=== PATIENT | male | born 1980 | race Caucasian/White ===

== ENCOUNTER 2016-11-16 15:08 | Emergency (ER) | payer MEDICARE, OTHER ==
[~2016-11-16] VITALS: Ht 182.9 cm; Wt 88.0 kg
[~2016-11-16 15:08] MED LIST: METH750T2 PO; MOBI15TA PO; XANA1TAB6 PO
[2016-11-16 15:12] VITALS: BP 154/79; PULSE 86; RESP 14; TEMP 97.5; O2SAT 96
--- NOTE | 2016-11-16 16:10 | PD ---
HPI Chief Complaint: Wound/Suture/Staple Re-Check Time Seen by Provider: 16:04 Travel History International Travel<30 days: No Contact w/Intl Traveler<30days: No Traveled to known affect area: No History of Present Illness HPI 36-year-old male presents to emergency department requesting pain medication for finger pain secondary to lacerations to his left index and middle finger. His sutures have been in place for approximately 3-4 days. The sutures were placed [facility] per the patient. He is taking Keflex currently. He went to the [place] [facility] to follow-up with primary care and they would not give him pain medications. He was told to come to the ER. Denies paresthesias, loss of sensation, decreased range of motion, decreased strength to the affected fingers. Denies fever, chills, nausea, vomiting. Patient says if we can give him pain medication he will go to crack off the street. A PTSD and takes Xanax. Modifying factors or associated signs and symptoms. History Social History Alcohol Use: Yes (SOCIAL) Tobacco Use: No Allergies-Medications (Allergen,Severity, Reaction): Coded Allergies: *MDRO Multi-Drug Resistant Organism (Unverified Adverse Reaction, Unknown , 11/16/16) 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 Reported Meds & Prescriptions Reported Meds & Active Scripts Active Robaxin (Methocarbamol) 750 Mg Tab 750 Mg PO QID Mobic (Meloxicam) 15 Mg Tab 15 Mg PO DAILY Reported Xanax 1 mg (Alprazolam) Alprazolam 1 mg Tab 1 Tab PO QID Review of Systems Except as stated in HPI: all other systems reviewed are Neg Physical Exam Narrative GENERAL: Well-nourished, well-developed male patient, in no acute distress SKIN: Warm and dry. Distal aspect of left index and middle finger with lacerations that are well approximated and with sutures intact: Without erythema , edema, drainage; no signs of infection. Fingers with good opposition and full range of motion; less than 3 second cap refill; sensory intact. Left upper extremity supple and non-tense with 2+ radial pulse and sensory intact without erythema or edema. HEAD: Atraumatic. Normocephalic. EYES: Pupils equal and round. No scleral icterus. No injection or drainage. ENT: Mucosa pink and moist. Airway patent. NECK: Trachea midline. CARDIOVASCULAR: Regular rate. RESPIRATORY: No accessory muscle use. GASTROINTESTINAL: Flat. MUSCULOSKELETAL: No obvious deformities. No clubbing. No cyanosis. No edema. NEUROLOGICAL: Awake and alert. Oriented 3. No obvious cranial nerve deficits. Motor grossly within normal limits. Normal speech. PSYCHIATRIC: Appropriate mood and affect; insight and judgment normal. Data Data Last Documented VS Vital Signs Date Time Temp Pulse Resp B/P Pulse Ox O2 Delivery O2 Flow Rate FiO2 11/16/16 15:12 97.5 86 14 154/79 96 Room Air [facility] Medical Screen Exam Complete: Yes Emergency Medical Condition: No Differential Diagnosis Medical clearance, narcotic seeking, wound infection Narrative Course Vital signs are stable and the patient is stable for outpatient follow-up and treatment. The patient has no urgent or emergent medical complaints. There is no emergent or urgent medical need at this time. I instructed the patient to follow up with their primary care provider. A medical screening exam was performed: At the time of evaluation the presenting medical condition was determined not to be of an emergent nature. The patient was given the option of receiving additional care, but declined. Patient was given options for additional community resources from which to obtain care. The Patient Has Been advised to seek medical attention for their presenting complaint. The patient has been advised to return to the ER at any time if an emergent condition develops. Primary Impression: Encounter for medical screening examination Condition: Stable Maria Del Carmen Perales Nov 16, 2016 16:09
== END 2016-11-16 16:08 | disposition left against medical advice (07) ==
LOC: NEPB 15:08
DX: M79.645 Pain in left finger(s) (principal)
CPT/HCPCS: 99281

== ENCOUNTER 2017-02-21 09:36 | Emergency (ER) | payer OTHER, MEDICARE ==
[~2017-02-21] VITALS: Ht 182.9 cm; Wt 85.2 kg
[2017-02-21 09:38] VITALS: BP 145/102; PULSE 71; RESP 16; TEMP 97.9; O2SAT 99
[2017-02-21] MEDS ORDERED: XANA1TAB2 PO (10:23)
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
[2017-02-21 11:44] VITALS: BP 131/72; PULSE 68; RESP 18; O2SAT 99
[2017-02-21] MEDS ORDERED: PERC5TAB12 PO (11:57)
== END 2017-02-21 12:30 | disposition home or self-care (01) ==
LOC: PHED 09:36
DX: S62.396A Other fracture of fifth metacarpal bone, right hand, initial encounter for closed fracture (principal); F07.81 Postconcussional syndrome; G44.309 Post-traumatic headache, unspecified, not intractable; S80.812A Abrasion, left lower leg, initial encounter; S60.511A Abrasion of right hand, initial encounter; S80.811A Abrasion, right lower leg, initial encounter; I10 Essential (primary) hypertension; Z79.899 Other long term (current) drug therapy; Y09 Assault by unspecified means
CPT/HCPCS: 29125; 70450; 73130

== ENCOUNTER 2017-04-26 14:34 | Inpatient (IN) | payer OTHER, MEDICARE ==
[~2017-04-26] VITALS: Ht 182.9 cm; Wt 85.1 kg
[~2017-04-26 14:34] MED LIST changes: -METH750T2 PO; -MOBI15TA PO; +PERC5TAB12 PO; +XANA1TAB2 PO; -XANA1TAB6 PO
[2017-04-26 14:49] VITALS: BP 156/93; PULSE 88; RESP 18; O2SAT 99
[2017-04-26 15:22] LABS: AUTOMATED NEUTROPHIL # 3.7 TH/MM3 (1.8-7.7); BASOPHIL % 0.8 % (0.0-2.0); EOSINOPHIL % 0.5 % (0.0-4.0); HEMATOCRIT 44.1 % (39.0-51.0); HEMO FLAGS DIFF FINAL; LYMPH % 18.4 % (9.0-44.0); MEAN CELL VOLUME 89.5 FL (80.0-100.0); MEAN CORPUSCULAR HEMOGLOBIN 31.3 PG (27.0-34.0); MEAN CORPUSCULAR HGB CONC 34.9 % (32.0-36.0); MONO % 14.3 % (0.0-8.0); PLATELET COUNT 202 TH/MM3 (150-450); RED BLOOD COUNT 4.93 MIL/MM3 (4.50-5.90); RED CELL DISTRIBUTION WIDTH 13.1 % (11.6-17.2); WHITE BLOOD COUNT 5.7 TH/MM3 (4.0-11.0)
--- NOTE | 2017-04-26 15:22 | PD ---
HPI Chief Complaint: Psychiatric Symptoms Time Seen by Provider: 15:19 Travel History International Travel<30 days: No Contact w/Intl Traveler<30days: No Traveled to known affect area: No History of Present Illness HPI 37-year-old male that presents to the ED for evaluation of psychiatric evaluation. [facility] he reports that he has been having issues with depression and anxiety. Per patient he has racing of thoughts. Per patient he "fucked up his brain" with Xanax. Per patient she's been using this for about 4 years now. Per patient [facility]. He denies any suicidal or homicidal ideation but he will like some help. He denies any other medical issues. Per patient he also has been taking Suboxone for opiate abuse. History of MRSA. No IV drugs. PFSH Past Medical History Anxiety: Yes Depression: Yes Cardiovascular Problems: Yes (HTN) High Cholesterol: Yes Diminished Hearing: No Hypertension: Yes Insomnia: Yes Musculoskeletal: Yes (CHRONIC LOW BACK PAIN) Psychiatric: Yes (PTSD ) Immunizations Current: Yes Influenza Vaccination: No Past Surgical History Surgical History: No Previous Surgery Oral Surgery: Yes Social History Alcohol Use: Yes Tobacco Use: No Substance Use: Yes (THC ) Allergies-Medications (Allergen,Severity, Reaction): Coded Allergies: *MDRO Multi-Drug Resistant Organism (Unverified Adverse Reaction, Unknown , 04/26/17) 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 Reported Meds & Prescriptions Reported Meds & Active Scripts Active Active Prescriptions or Reported Medications Unobtainable Review of Systems Except as stated in HPI: all other systems reviewed are Neg Physical Exam Narrative GENERAL: SKIN: Warm and dry. HEAD: Atraumatic. Normocephalic. EYES: Pupils equal and round. No scleral icterus. No injection or drainage. ENT: No nasal bleeding or discharge. Mucous membranes pink and moist. Tongue is midline. No uvula deviation. NECK: Trachea midline. No JVD. CARDIOVASCULAR: Regular rate and rhythm. No murmurs, S3, S4. RESPIRATORY: No accessory muscle use. Clear to auscultation. Breath sounds equal bilaterally. GASTROINTESTINAL: Abdomen soft, non-tender, nondistended. Hepatic and splenic margins not palpable. MUSCULOSKELETAL: Extremities without clubbing, cyanosis, or edema. No obvious deformities. Full range of motion of the upper and lower extremities bilaterally. 2+ pulses bilaterally. NEUROLOGICAL: Awake and alert. No obvious cranial nerve deficits. Motor grossly within normal limits. Five out of 5 muscle strength in the arms and legs. Normal speech. PSYCHIATRIC: Very anxious mood and affect; insight and judgment normal. Data Data Last Documented VS Vital Signs Date Time Temp Pulse Resp B/P Pulse Ox O2 Delivery O2 Flow Rate FiO2 04/26/17 14:49 88 18 156/93 99 Orders Complete Blood Count With Diff (04/26/17 14:41) Comprehensive Metabolic Panel (04/26/17 14:41) Urinalysis - C+S If Indicated (04/26/17 14:41) Psych Screen (04/26/17 14:41) Drug Screen, Random Urine (04/26/17 14:41) Alcohol (Ethanol) (04/26/17 14:41) ^ Sitter (04/26/17 14:45) Labs Laboratory Tests Test 04/26/17 14:55 White Blood Count 5.7 TH/MM3 Red Blood Count 4.93 MIL/MM3 Hemoglobin 15.4 GM/DL Hematocrit 44.1 % Mean Corpuscular Volume 89.5 FL Mean Corpuscular Hemoglobin 31.3 PG Mean Corpuscular Hemoglobin 34.9 % Concent Red Cell Distribution Width 13.1 % Platelet Count 202 TH/MM3 Mean Platelet Volume 8.9 FL Neutrophils (%) (Auto) 66.0 % Lymphocytes (%) (Auto) 18.4 % Monocytes (%) (Auto) 14.3 % Eosinophils (%) (Auto) 0.5 % Basophils (%) (Auto) 0.8 % Neutrophils # (Auto) 3.7 TH/MM3 Lymphocytes # (Auto) 1.0 TH/MM3 Monocytes # (Auto) 0.8 TH/MM3 Eosinophils # (Auto) 0.0 TH/MM3 Basophils # (Auto) 0.0 TH/MM3 CBC Comment DIFF FINAL Differential Comment Urine Color YELLOW Urine Turbidity CLEAR Urine pH 6.0 Urine Specific [place] 1.035 Urine Protein 30 mg/dL Urine Glucose (UA) NEG mg/dL Urine Ketones TRACE mg/dL Urine Occult Blood NEG Urine Nitrite NEG Urine Bilirubin NEG Urine Urobilinogen 2.0 MG/DL Urine Leukocyte Esterase NEG Urine RBC 1 /hpf Urine WBC 1 /hpf Urine Squamous Epithelial <1 /hpf Cells Urine Mucus MOD /lpf Microscopic Urinalysis Comment CULT NOT INDICATED Sodium Level 138 MEQ/L Potassium Level 3.9 MEQ/L Chloride Level 101 MEQ/L Carbon Dioxide Level 27.4 MEQ/L Anion Gap 10 MEQ/L Blood Urea Nitrogen 10 MG/DL Creatinine 1.20 MG/DL Estimat Glomerular Filtration 69 ML/MIN Rate Random Glucose 110 MG/DL Calcium Level 9.3 MG/DL Total Bilirubin 1.3 MG/DL Aspartate Amino Transf 41 U/L (AST/SGOT) Alanine Aminotransferase 44 U/L (ALT/SGPT) Alkaline Phosphatase 70 U/L Total Protein 8.0 GM/DL Albumin 4.3 GM/DL Urine Opiates Screen NEG Urine Barbiturates Screen NEG Urine Amphetamines Screen NEG Urine Benzodiazepines Screen NEG Urine Cocaine Screen NEG Urine Cannabinoids Screen NEG Ethyl Alcohol Level LESS THAN 3 MG/DL MDM Medical Decision Making Medical Screen Exam Complete: Yes Emergency Medical Condition: Yes Medical Record Reviewed: Yes Interpretation(s) CBC & BMP Diagram 04/26/17 14:55 tox negative Differential Diagnosis Depression versus suicidal ideation versus anxiety versus adjustment disorder versus mood disorder versus bipolar disorder versus schizophrenia versus paranoid disorder versus psychosis versus substance abuse versus alcohol abuse versus alcohol induced psychosis versus homicidality addition versus cutting versus personality disorder Narrative Course 37-year-old male that presents to the ED for evaluation of psych. Patient was properly examined and was found to have signs and symptoms consistent appears to be psychiatric illness. Labs were drawn. Patient will be medically clear. Okay to be seen by psych. Mental health screening was discussed with the patient. Diagnosis Primary Impression: Mood disorder Additional Impression: Substance abuse Scripts Unable to Obtain Active Prescriptions or Reported Meds Stanley Mary Apr 26, 2017 15:22 Stanley Mary Apr 26, 2017 15:22
[2017-04-26 15:32] LABS: AMPHETAMINE, URINE NEG (NEG); BARBITURATES, URINE NEG (NEG); COCAINE, URINE NEG (NEG)
[2017-04-26 15:36] LABS: BLOOD, URINE NEG (NEG); COMMENT (UR) CULT NOT INDICATED; CULTURE IF INDICATED CULT NOT INDICATED; GLUCOSE,URINE NEG (NEG); KETONE, URINE TRACE mg/dL (NEG); MUCUS URINE MOD /lpf (OCC); NITRITE,URINE NEG (NEG); SQUAMOUS EPITHELIAL CELL URINE <1 /hpf (0-5); URINE COLOR YELLOW (YELLW/STRAW)
[2017-04-26 15:42] LABS: ALT (GPT) 44 U/L (12-78); ANION GAP 10 MEQ/L (5-15); AST (GOT) 41 U/L (15-37); BICARBONATE 27.4 MEQ/L (21.0-32.0); BLOOD UREA NITROGEN 10 MG/DL (7-18); CHLORIDE 101 MEQ/L (98-107); GLOMERULAR FILTRATION RATE 69 ML/MIN (>89); POTASSIUM 3.9 MEQ/L (3.5-5.1); SODIUM (NA) 138 MEQ/L (136-145)
[2017-04-26 15:45] LABS: ALKALINE PHOSPHATASE 70 U/L (45-117); TOTAL BILIRUBIN ADULT 1.3 MG/DL (0.2-1.0)
[2017-04-26] MEDS ORDERED: SUBO8MIS SL (17:25)
[2017-04-26 18:07] VITALS: BP 136/83; PULSE 96; RESP 18; O2SAT 100
[2017-04-26] MEDS ORDERED: LORazepam 2 MG TAB PO ONE (19:15)
[2017-04-26] MEDS ORDERED: diphenhydrAMINE HCL 50 MG/ML VIAL ONE (19:22)
[2017-04-26] MEDS ORDERED: LORazepam 2 MG/ML VIAL ONE (19:22)
[2017-04-26] MEDS ORDERED: HALOPERIDOL LACTATE 5 MG/ML AMP ONE (19:23)
[2017-04-26] MEDS ORDERED: HALOPERIDOL LACTATE 5 MG/ML AMP IM ONE (19:30)
[2017-04-26] MEDS ORDERED: LORazepam 2 MG/ML VIAL IM ONE (19:30)
[2017-04-26] MEDS ORDERED: diphenhydrAMINE HCL 50 MG/ML VIAL IM ONE (19:30)
[2017-04-26 22:03] VITALS: BP 114/67; PULSE 70; RESP 16; O2SAT 98
[2017-04-27 02:31] VITALS: BP 127/80; PULSE 98; RESP 18; O2SAT 98
[2017-04-27 06:10] VITALS: BP 137/63; PULSE 84; RESP 18; O2SAT 98
[2017-04-27 12:30] VITALS: BP 135/68; PULSE 88; RESP 18; O2SAT 98
[2017-04-27] MEDS ORDERED: LORazepam 1 MG TAB PO ONE (15:15)
[2017-04-27] MEDS ORDERED: LORazepam 2 MG/ML VIAL IM PRN (17:45)
[2017-04-27] MEDS ORDERED: FLUMAZENIL 0.5 MG/5 ML VIAL IV PUSH PRN (17:45)
[2017-04-27] MEDS ORDERED: LORazepam 2 MG TAB PO PRN (17:45)
[2017-04-27] MEDS ORDERED: LORazepam 2 MG/ML VIAL IV PUSH PRN ×4 (17:45)
[2017-04-27] MEDS ORDERED: ALUMINUM/MAGNESIUM/SIMETH 30 ML CUP PO PRN (17:45)
[2017-04-27] MEDS ORDERED: LORazepam 1 MG TAB PO PRN ×2 (17:45)
[2017-04-27] MEDS ORDERED: MAGNESIUM HYDROXIDE SUSP 30 ML CUP PO PRN (17:45)
[2017-04-27 18:43] VITALS: BP 135/85; PULSE 89; RESP 18; O2SAT 98
[2017-04-27 20:22] VITALS: BP 131/90; PULSE 76; RESP 20; TEMP 98.4; O2SAT 98
[2017-04-28] MEDS ORDERED: NICOTINE 21 MG/24 HR PATCH T-DERMAL SCH (09:00)
[2017-04-28] MEDS ORDERED: REMOVE OLD PATCH T-DERMAL SCH (09:00)
--- NOTE | 2017-04-28 14:11 | HHI.HP ---
Provisional Diagnosis Admission Date Apr 27, 2017 at 15:51 [place]. Bipolar disorder mixed F 31.60, PTSD F 43.10, history of polysubstance abuse f 19.10 Certification of Person's Competence To Provide Express and Informed Consent I have personally examined Charly Fonseca, MONICA , a person being served at [facility] on, Apr 28, 2017 13:47. Express and informed consent means consent voluntarily given in writing, by a competent person, after sufficient explanation and disclosure of the subject matter involved to enable the person to make a knowing and willful decision without any element of force, fraud, deceit, duress, or other form of constraint or coercion. This person is 18 years of age or older, is not now known to be incompetent to consent to treatment with a guardian advocate, and does not have a health care surrogate or proxy currently making medical treatment decisions. I have found this person to be one of the following: []xxx Competent to provide express and informed consent, as defined above, for voluntary admission to this facility and is competent to provide express and informed consent for treatment. He/she has the consistent capacity to make well reasoned, willful, and knowing decisions concerning his or her medical or mental health treatment. The person fully and consistently understands the purpose of the admission for examination/placement and is fully capable of personally exercising all rights assured under [place] Incompetent to provide express and informed consent to voluntary admission, and this is incompetent to provide express and informed consent to treatment. The person must be transferred to involuntary status and a petition for a guardian advocate filed with the Circuit Court. [] Refusing to provide express and informed consent to voluntary admission but is competent to provide express and informed consent for treatment. The person must be discharged or transferred to involuntary status. Form shall be completed within 24 hours of a person's arrival at the receiving facility and filed in the clinical record of each person: 1. Admitted on a voluntary basis 2. Permitted to provide express and informed consent to his/her own treatment 3. Allowed to transfer from involuntary to voluntary status 4. Prior to permitting a person to consent to his or her own treatment after having been previously found incompetent to consent to treatment. History of Present Illness Capacity: Has Capacity HPI Patient is a 37-year-old white male an [employer] with 3[place]4 [place] act signed by Paul Roberts M.D. dated 1330 8 PM that document reviewed with diagnoses MDD PTSD EtOH overdose opiate overdose benzo overdose stating patient is intoxicated with suicidal intent and plan to jump in front of car. Patient seen screened in the ED urine toxicology negative but alcohol level negative. Patient seen by me today with nurse Jocelyne present throughout session patient is alert oriented intense white male sitting fairly calmly on his bed on 2600. He [facility] because she is getting more intense anxious and worried concerned about his anxiety related to his going off of his Xanax and being placed on Suboxone. It appears this is cycle him into a manic type episode. He states he has, and has had a history of, racing thoughts rapid pressured speech increased energy with decreased need for sleep the acknowledges poor task completion, he acknowledges risky behaviors that in retrospect concerned him. He also acknowledges long history of multiple drug abuse is able calm self an addict. At the substance abuse a back to his time in the service. Patient doesn't medical discharge related to both the mental health and physical disability. Acknowledged use of multiple drugs including marijuana and cocaine various benzodiazepines and opiates mushrooms heroin and LSD. He does deny any suicidal homicidal ideation intent or plan. He states he lives by himself because he can't tolerate around people very much, that he has an explosive temper. He states he has a girlfriend that is his age 2 teenage daughters. Is a contentious relationship. Is also lady who is an immigrant from [place] they have an 8-year-old son. Denies any physical or sexual abuse as a child. Continues vague about any mental health issues in his family. We did spend a fairly long time discussing the possibility of him being bipolar. Though with his significant substance abuse history is difficult to make a definitive diagnosis of that at this time. In any event I do feel he would benefit from a mood stabilizer such as Tegretol. When discussing the need for compliance with medication absolute sobriety, and his willingness to accept the slowing down of his mood with this patient became somewhat resistant to it. He did say he would be willing to go talk with his [facility] doctor today or tomorrow. To discuss this further. At this time I feel patient does not meet [place] act criteria he does not wish to stay any further with us. Thus I'll lift the [place] act allow him to be discharged from self. But I will give him a prescription for Tegretol 100 mg twice a day a one-week supply to give to his [facility] psychiatrist for him to consider whether to put the patient on that medication. He is not to fill it and started unilaterally. There is mention patient is able contracted to no harm return to [facility] to see our psych screeners if he finds himself getting out of control Review of Systems Constitutional: DENIES: Diaphoretic episodes, Fatigue, Fever, Weight gain, Weight loss, Chills, Dizziness, Change in appetite, Night Sweats Endocrine: DENIES: Heat/cold intolerance, Polydipsia, Polyuria, Polyphagia Eyes: DENIES: Blurred vision, Diplopia, Eye inflammation, Eye pain, Vision loss , Photosensitivity, Double Vision Ears, nose, mouth, throat: DENIES: Tinnitus, Hearing loss, Vertigo, Nasal discharge, Oral lesions, Throat pain, Hoarseness, Ear Pain, Running Nose, Epistaxis, Sinus Pain, Toothache, Odynophagia Respiratory: DENIES: Apneas, Cough, Snoring, Wheezing, Hemoptysis, Sputum production, Shortness of breath Cardiovascular: DENIES: Chest pain, Palpitations, Syncope, Dyspnea on Exertion , PND, Lower Extremity Edema, Orthopnea, Claudication Gastrointestinal: DENIES: Abdominal pain, Black stools, Bloody stools, Constipation, Diarrhea, Nausea, Vomiting, Difficulty Swallowing, Anorexia Genitourinary: DENIES: Sexual dysfunction, Urinary frequency, Urinary incontinence, Urgency, Hematuria, Dysuria, Nocturia, Penile Discharge, Testicular Pain, Testicular Swelling Musculoskeletal: DENIES: Joint pain, Muscle aches, Stiffness, Joint Swelling, Back pain, Neck pain Integumentary: DENIES: Abnormal pigmentation, Nail changes, Pruritus, Rash Hematologic/lymphatic: DENIES: Bruising, Lymphadenopathy Neurologic: DENIES: Abnormal gait, Headache, Localized weakness, Paresthesias, Seizures, Speech Problems, Tremor, Poor Balance Psychiatric: COMPLAINS OF: Anxiety, Mood changes Past Psych History Psychological trauma history Patient has history of PTSD with occasional recurrence of symptoms Violence risk - others (6 mos) Patient has explosive temper has been in fights in the past Violence risk - self (6 mos) Patient denies suicidal ideation intent or plan Substance Abuse History Drugs/Alcohol past 12 months Patient neurologist recent use of alcohol was urine toxicology was negative and blood alcohol level was negative Past Family Social History Coded Allergies: *MDRO Multi-Drug Resistant Organism (Unverified Adverse Reaction, Unknown , 04/26/17) 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 Past Medical History Patient's history of trauma with explosive temper has a history of boxer fractures Reported Medications Buprenorphine-Naloxone Sublingual Film (Suboxone Sublingual Film)8-2 Mg Film1 Film SL BID Unique ID number required: 04/26/17 Discontinued Reported Medications Alprazolam (Xanax)1 Mg Tab1 Mg PO Q6H PRN (ANXIETY) Ref 0 02/21/17 Discontinued Scripts Oxycodone-Acetaminophen (Percocet)5-325 mg Tab1 Tab PO Q6H PRN (PAIN) #20 TAB Ref 0 Prov:Arnulfo Nino MD 02/21/17 Current Medications Medications (Trade) Dose Ordered Sig/Jayce Route Start Time Stop Time Status Last Admin (Ativan) 1 mg Q6H PRN PO 04/27/17 17:45 (Ativan Inj) 1 mg Q6H PRN IM 04/27/17 17:45 (Milk Of Magnesia Liq) 30 ml DAILY PRN PO 04/27/17 17:45 (Mag-Al Plus Susp Liq) 30 ml Q6H PRN PO 04/27/17 17:45 (Habitrol 21 Mg Patch.24 Hr) 1 patch DAILY T-DERMAL 04/28/17 09:00 (Romazicon Inj) 0.2 mg Q1M PRN IV PUSH 04/27/17 17:45 (Ativan) 1 mg Q4H PRN PO 04/27/17 17:45 (Ativan Inj) 1 mg Q4H PRN IV PUSH 04/27/17 17:45 (Ativan) 2 mg Q2H PRN PO 04/27/17 17:45 04/27/17 21:31 (Ativan Inj) 2 mg Q2H PRN IV PUSH 04/27/17 17:45 (Ativan Inj) 2 mg Q1H PRN IV PUSH 04/27/17 17:45 (Ativan Inj) 2 mg Q15M PRN IV PUSH 04/27/17 17:45 Miscellaneous Information 1 DAILY T-DERMAL 04/28/17 09:00 04/28/17 08:49 Family History Patient is vague about any history mental health issues were addictions and family of origin Social History Patient lives by himself but has a girlfriend on his 2 teenage daughters and a with his 8-year-old son Patient's Strengths (min. 2) Patient verbal able access healthcare Physical Exam Patient seen screened in ED medically cleared. Patient sitting with a somewhat arousing attitude on his bed and 2600 he is in no acute distress, neck supple no respiratory distress. No complaints of abdominal pain. Patient move all 4 extremities without difficulty. No abnormal motor movements noted Vital Signs Vital Signs Date Time Temp Pulse Resp B/P Pulse Ox O2 Delivery O2 Flow Rate FiO2 04/27/17 20:22 98.4 76 20 131/90 98 04/27/17 18:43 Room Air Lab Results Urine toxicology negative blood alcohol level negative Mental Status Examination Alert oriented white male appears stated age clean need to a small trimmed van Alex goatee is calm cooperative though somewhat intense and at times somewhat resistant to recommendations with good eye contact Appearance Clean neatly Speech: Pressured, Rapid Orientation: x3 Memory: Unremarkable Thought Process: Logical, Linear Thought Content: Unremarkable, Paranoid (vaguely) Language Fair Fund of Knowledge Fair Hallucination Type: None (denies at this time but does acknowledge at times history of flashbacks and nightmares) Attention and Concentration: Other (there) Suicidal Ideation: No (denies at this time) Previous Suicide Attempts: No Homicidal Ideation: No Previous Homicide Attempts: No Insight: Poor Judgment: Poor Affect: Other (increased range and intensity) Mood: Euthymic, Manic (hypomanic) Motor Activity: Normal gait Assessment & Plan Problem List: (1) Polysubstance abuse ICD Code: F19.10 (2) PTSD (post-traumatic stress disorder) ICD Code: F43.10 (3) Bipolar disorder, mixed ICD Code: F31.60 Assessment & Plan Estimated LOS: days well patient showing signs of hypomania, he continues to refuse continue hospitalization with trial of mood stabilizer. He wishes to consult with his psychiatrist at the [place] [facility] within the next 24 hours. Since he does not meet criteria for involuntary psychiatric hospitalization at this time I will agreed to that. He continues to denies suicidality homicidality voices or visions. I'll give a prescription for Tegretol 100 mg #14 one twice a day though not to be filled until approved by the [facility] psychiatrist Discharge Planning See above Request HC Surrog/Guard Advoc?: No Sheng Colmenares MD Apr 28, 2017 14:11
[2017-04-28] MEDS ORDERED: CARB100C CHEW (14:14)
--- NOTE | 2017-04-28 14:19 | HHI.DS ---
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 dated 1330 8 PM that document reviewed with diagnoses MDD PTSD EtOH overdose opiate overdose benzo overdose stating patient is intoxicated with suicidal intent and plan to jump in front of car. Patient seen screened in the ED urine toxicology negative but alcohol level negative. Patient seen by me today with nurse Jocelyne present throughout session patient is alert oriented intense white male sitting fairly calmly on his bed on 2600. He stated he wanted the [place] clinic because she is getting more intense anxious and worried concerned about his anxiety related to his going off of his Xanax and being placed on Suboxone. It appears this is cycle him into a manic type episode. He states he has, and has had a history of, racing thoughts rapid pressured speech increased energy with decreased need for sleep the acknowledges poor task completion, he acknowledges risky behaviors that in retrospect concerned him. He also acknowledges long history of multiple drug abuse is able calm self an addict. At the substance abuse a back to his time in the service. Patient doesn't medical discharge related to both the mental health and physical disability. Acknowledged use of multiple drugs including marijuana and cocaine various benzodiazepines and opiates mushrooms heroin and LSD. He does deny any suicidal homicidal ideation intent or plan. He states he lives by himself because he can't tolerate around people very much, that he has an explosive temper. He states he has a girlfriend that is his age 2 teenage daughters. Is a contentious relationship. Is also lady who is an immigrant from [place] they have an 8-year-old son. Denies any physical or sexual abuse as a child. Continues vague about any mental health issues in his family. We did spend a fairly long time discussing the possibility of him being bipolar. Though with his significant substance abuse history is difficult to make a definitive diagnosis of that at this time. In any event I do feel he would benefit from a mood stabilizer such as Tegretol. When discussing the need for compliance with medication absolute sobriety, and his willingness to accept the slowing down of his mood with this patient became somewhat resistant to it. He did say he would be willing to go talk with his [place] doctor today or tomorrow. To discuss this further. At this time I feel patient does not meet [place] act criteria he does not wish to stay any further with us. Thus I'll lift the [place] act allow him to be discharged from [facility]. But I will give him a prescription for Tegretol 100 mg twice a day a one-week supply to give to his [place] psychiatrist for him to consider whether to put the patient on that medication. He is not to fill it and started unilaterally. There is mention patient is able contracted to no harm return to [facility] to see our psych screeners if he finds himself getting out of control Tobacco Use In Past 30 Days: No Tobacco Past 30 Days Alcohol Use: 2-3 Times Per Week Hospital Course Please see note dictated under brief history. Patient does not meet Cornell criteria at this time. He denies suicidality homicidality voices or visions is able contract was to do no harm and to return to [facility] to see psych screener if things deteriorate There still remains hypomanic. Patient to be discharged with Rx Tegretol 100 mg #14 one twice a day no refill but not to be filled unless approved by the [place] psychiatrist. Patient follow-up NH clinic as soon as possible. Absolute sobriety Results Blood Pressure 131 / 90 Vital Signs Date Time Temp Pulse Resp B/P Pulse Ox O2 Delivery O2 Flow Rate FiO2 04/27/17 20:22 98.4 76 20 131/90 98 04/27/17 18:43 Room Air Urine toxicology negative blood alcohol level negative Laboratory Tests Test 04/26/17 14:55 Monocytes (%) (Auto) 14.3 % (0.0-8.0) Urine Protein 30 mg/dL (NEG-TRACE) Urine Ketones TRACE mg/dL (NEG) Urine Mucus MOD /lpf (OCC) Estimat Glomerular Filtration 69 ML/MIN (>89) Rate Random Glucose 110 MG/DL (74-106) Total Bilirubin 1.3 MG/DL (0.2-1.0) Aspartate Amino Transf 41 U/L (15-37) (AST/SGOT) Summary of Procedures None done Pending results at discharge: No Medications # of Antipsychotic meds at D/C: 0 Approp Antipsych med options 1 - Minimum of three failed multiple trials of monotherapy. 2 - Documented plan to taper to monotherapy due to previous use of multiple meds OR cross-taper in progress at D/C. 3 - Documentation of augmentation of Clozapine. 4 - Justification other than those listed in allowable values 1-3, document here : Discharge Discharge Date: Apr 28, 2017 Discharge Diagnosis: (1) Polysubstance abuse Diagnosis: Secondary ICD Code: F19.10 (2) PTSD (post-traumatic stress disorder) Diagnosis: Secondary ICD Code: F43.10 (3) Bipolar disorder, mixed Diagnosis: Principal ICD Code: F31.60 Mental Status Exam at Disch Alert oriented white male sibilus somewhat aroused intense attitude, he is normal active to mildly hyperactive, mood is hypomanic increased range and intensity of his affect, speech is rapid and pressured, it is overall goal oriented. There are no auditory or visual hallucinations no delusions noted insight and judgment is poor to fair cognition grossly intact Pt Condition on Discharge: Stable Discharge Disposition: Discharge Home Discharge Instructions Diet Instructions: As Tolerated, No Restrictions Activities you can perform: Regular-No Restrictions Scheduled Appointment: follow-up [facility] clinic as soon as possible, presenting Rx to the NH psychiatrist Discharge Time > 30 minutes Discharge/Advance Care Plan Health Problems: (1) Polysubstance abuse (2) PTSD (post-traumatic stress disorder) (3) Bipolar disorder, mixed Goals to promote your health * To prevent worsening of your condition and complications * To maintain your health at the optimal level Directions to meet your goals Take your medications as prescribed Follow your dietary instruction Follow activity as directed Keep your appointments as scheduled Take your immunizations and boosters as scheduled If your symptoms worsen call your PCP, if no PCP go to Urgent Care Center or Emergency Room For 03/05 questions related to your inpatient stay or results of tests pending at discharge, please contact Dr. Sheng Colmenares at Smoking is Dangerous to Your Health. Avoid second hand smoking Sheng Colmenares MD Apr 28, 2017 14:19
== END 2017-04-28 17:20 | disposition home or self-care (01) | DRG 885 ==
LOC: NEPC 14:34 → NEDA 04-27 15:51 → H260 04-27 19:57
PROVIDERS: ADMIT Psychiatry & Neurology Psychiatry; ATTEND Psychiatry & Neurology Psychiatry
DX: F31.60 Bipolar disorder, current episode mixed, unspecified (principal); F11.20 Opioid dependence, uncomplicated; F43.10 Post-traumatic stress disorder, unspecified; F41.9 Anxiety disorder, unspecified
CPT/HCPCS: 80053; 80307; 81001; 85025; J1200; J1630; J2060

== ENCOUNTER 2017-10-15 07:11 | Emergency (ER) | payer OTHER, MEDICARE ==
[~2017-10-15] VITALS: Ht 182.9 cm; Wt 89.0 kg
[~2017-10-15 07:11] MED LIST changes: +CARB100C CHEW; -PERC5TAB12 PO; +SUBO8MIS SL; -XANA1TAB2 PO
[2017-10-15 07:14] VITALS: BP 148/92; PULSE 77; RESP 16; TEMP 97.5; O2SAT 99
[2017-10-15] MEDS ORDERED: NALT50TA3 PO (07:31)
[2017-10-15] MEDS ORDERED: ONDANSETRON HCL 4 MG/2 ML VIAL IVP ONE (07:45)
[2017-10-15] MEDS ORDERED: LORazepam 2 MG/ML VIAL IV PUSH ONE (07:45)
[2017-10-15] MEDS ORDERED: SODIUM CHLOR 0.9% 1000 ML INJ 1,000 ML IV ONE (07:45)
[2017-10-15] MEDS ORDERED: SODIUM CHLORIDE 0.9% FLUSH 10 ML FLUSH IV FLUSH PRN (07:45)
--- NOTE | 2017-10-15 07:48 | PD ---
HPI Chief Complaint: GI Complaint Time Seen by Provider: 07:34 Travel History International Travel<30 days: No Contact w/Intl Traveler<30days: No Traveled to known affect area: No History of Present Illness HPI This patient complains of alcohol withdrawal. He is at least a 12 pack a day drinker. He has not had any alcohol in 18 hours. He complains of nausea vomiting diarrhea. He feels restless. Denies fever. Not having abdominal pain. Symptom severity is moderately severe. He uses drugs but does not inject himself. Duration is 10 hours. No alleviating factors. Symptoms exacerbated by heavy polysubstance abuse. Patient is not feeling suicidal PFSH Past Medical History Hx Anticoagulant Therapy: No Anxiety: Yes Depression: Yes Cardiovascular Problems: Yes (HTN) High Cholesterol: Yes Diabetes: No Diminished Hearing: No Hypertension: Yes Insomnia: Yes Musculoskeletal: Yes (CHRONIC LOW BACK PAIN) Psychiatric: Yes (PTSD, anxiety, and depression) Immunizations Current: Yes Tetanus Vaccination: < 5 Years Influenza Vaccination: No Past Surgical History Oral Surgery: Yes Social History Alcohol Use: Yes Tobacco Use: No Substance Use: Yes (xanax, etoh daily -"12pack/shots", opiods, heroin, benzos) Allergies-Medications (Allergen,Severity, Reaction): Coded Allergies: *MDRO Multi-Drug Resistant Organism (Unverified Adverse Reaction, Unknown , 10/15/17) 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 Reported Meds & Prescriptions Reported Meds & Active Scripts Active Reported Naltrexone (Naltrexone HCl) 50 Mg Tab Unknown Dose PO DAILY Suboxone Sublingual Film (Buprenorphine-Naloxone Sublingual Film) 8-2 Mg Film 1 Film SL BID Unique ID number required: Review of Systems General / Constitutional: No: Fever Eyes: No: Visual changes HENT: No: Headaches Cardiovascular: No: Chest Pain or Discomfort Respiratory: No: Shortness of Breath Gastrointestinal: Positive: Nausea, Vomiting, Diarrhea, No: Abdominal Pain Genitourinary: No: Dysuria Musculoskeletal: No: Pain Skin: No Rash Neurologic: No: Weakness Psychiatric: Positive: Substance Abuse, No: Depression Endocrine: No: Polydipsia Hematologic/Lymphatic: No: Easy Bruising Physical Exam Narrative GENERAL: Well-nourished, well-developed patient with nausea vomiting diarrhea . SKIN: Focused skin assessment reveals no rash and nodules. Skin is Warm and dry. HEAD: Atraumatic. Normocephalic. EYES: Pupils equal and round. No scleral icterus. No injection or drainage. ENT: No nasal bleeding or discharge. Mucous membranes pink and moist. NECK: Trachea midline. No JVD. CARDIOVASCULAR: Regular rate and rhythm. No murmur appreciated. RESPIRATORY: No accessory muscle use. Clear to auscultation. Breath sounds equal bilaterally. GASTROINTESTINAL: Abdomen soft, non-tender, nondistended. Hepatic and splenic margins not palpable. MUSCULOSKELETAL: No obvious deformities. No clubbing. No cyanosis. No edema. NEUROLOGICAL: Awake and alert. No obvious cranial nerve deficits. Motor grossly within normal limits. Normal speech. PSYCHIATRIC: Anxious mood and affect; insight and judgment poor Data Data Last Documented VS Vital Signs Date Time Temp Pulse Resp B/P (MAP) Pulse Ox O2 Delivery O2 Flow Rate FiO2 10/15/17 09:05 16 10/15/17 09:00 62 147/78 (101) 99 Room Air 10/15/17 07:14 97.5 Orders Orders Complete Blood Count With Diff (10/15/17 07:44) Comprehensive Metabolic Panel (10/15/17 07:44) Iv Access Insert/Monitor (10/15/17 07:44) Sodium Chloride 0.9% Flush (Ns Flush) (10/15/17 07:45) Ondansetron Inj (Zofran Inj) (10/15/17 07:45) Sodium Chlor 0.9% 1000 Ml Inj (Ns 1000 M (10/15/17 07:45) Lorazepam Inj (Ativan Inj) (10/15/17 07:45) Alcohol (Ethanol) (10/15/17 07:53) Labs Laboratory Tests Test 10/15/17 07:53 White Blood Count 8.8 TH/MM3 Red Blood Count 5.12 MIL/MM3 Hemoglobin 15.2 GM/DL Hematocrit 47.0 % Mean Corpuscular Volume 91.7 FL Mean Corpuscular Hemoglobin 29.7 PG Mean Corpuscular Hemoglobin Concent 32.4 % Red Cell Distribution Width 12.3 % Platelet Count 267 TH/MM3 Mean Platelet Volume 8.6 FL Neutrophils (%) (Auto) 84.5 % Lymphocytes (%) (Auto) 7.2 % Monocytes (%) (Auto) 6.9 % Eosinophils (%) (Auto) 0.0 % Basophils (%) (Auto) 1.4 % Neutrophils # (Auto) 7.5 TH/MM3 Lymphocytes # (Auto) 0.6 TH/MM3 Monocytes # (Auto) 0.6 TH/MM3 Eosinophils # (Auto) 0.0 TH/MM3 Basophils # (Auto) 0.1 TH/MM3 CBC Comment DIFF FINAL Differential Comment Blood Urea Nitrogen 7 MG/DL Creatinine 1.30 MG/DL Random Glucose 148 MG/DL Total Protein 8.2 GM/DL Albumin 4.3 GM/DL Calcium Level 9.3 MG/DL Alkaline Phosphatase 70 U/L Aspartate Amino Transf (AST/SGOT) 32 U/L Alanine Aminotransferase (ALT/SGPT) 43 U/L Total Bilirubin 1.1 MG/DL Sodium Level 139 MEQ/L Potassium Level 4.0 MEQ/L Chloride Level 103 MEQ/L Carbon Dioxide Level 26.0 MEQ/L Anion Gap 10 MEQ/L Estimat Glomerular Filtration Rate 62 ML/MIN Ethyl Alcohol Level LESS THAN 3 MG/DL MDM Medical Decision Making Medical Screen Exam Complete: Yes Emergency Medical Condition: Yes Medical Record Reviewed: Yes Differential Diagnosis Alcohol withdrawal, drug withdrawal, gastroenteritis, colitis, dehydration Narrative Course I have reviewed the patient's electronic medical record. Patient was here this past summer for mood disorder IV placed I gave him IV Zofran and IV Ativan and 1 L normal saline IV bolus CBC is normal Metabolic profile is normal LFTs are normal Alcohol level is negative and we have spoken with [facility]. They will offer him a detox bed later today if he goes over there and doesn't intake visit now. I have reviewed this with him and recommended he do that. Zofran prescribed. His alcohol withdrawal at this time is mild and does not require hospital inpatient stay Diagnosis Primary Impression: Alcoholism with alcohol dependence Qualified Codes: F10.239 - Alcohol dependence with withdrawal, unspecified Additional Impressions: Polysubstance abuse Nausea vomiting and diarrhea Additional Instructions: The patient was advised to follow up with their physician and return if they worsen. Head over to [facility] from here Med/Other Pt SpecificInfo: Prescription(s) given Scripts Ondansetron (Zofran) 4 Mg Tab 4 MG PO Q6HR Y for NAUSEA OR VOMITING, #15 TAB 0 Refills Prov: Arnulfo Nino MD 10/15/17 Disposition: 01 DISCHARGE HOME Condition: Stable Arnulfo Nino MD Oct 15, 2017 07:48
[2017-10-15 07:58] VITALS: BP 135/74; PULSE 64; RESP 18
[2017-10-15 08:04] LABS: AUTOMATED NEUTROPHIL # 7.5 TH/MM3 (1.8-7.7); BASOPHIL # 0.1 TH/MM3 (0-0.2); BASOPHIL % 1.4 % (0.0-2.0); HEMOGLOBIN 15.2 GM/DL (13.0-17.0); LYMPH % 7.2 % (9.0-44.0); LYMPHOCYTE # 0.6 TH/MM3 (1.0-4.8); MEAN CELL VOLUME 91.7 FL (80.0-100.0); MEAN CORPUSCULAR HEMOGLOBIN 29.7 PG (27.0-34.0); MEAN CORPUSCULAR HGB CONC 32.4 % (32.0-36.0); MEAN PLATELET VOLUME 8.6 FL (7.0-11.0); MONO % 6.9 % (0.0-8.0); MONOCYTE # 0.6 TH/MM3 (0-0.9); NEUT % 84.5 % (16.0-70.0); PLATELET COUNT 267 TH/MM3 (150-450); RED BLOOD COUNT 5.12 MIL/MM3 (4.50-5.90); RED CELL DISTRIBUTION WIDTH 12.3 % (11.6-17.2); WHITE BLOOD COUNT 8.8 TH/MM3 (4.0-11.0)
[2017-10-15 08:12] LABS: CHLORIDE 103 MEQ/L (98-107); SODIUM (NA) 139 MEQ/L (136-145)
[2017-10-15 08:15] LABS: ALBUMIN 4.3 GM/DL (3.4-5.0); BLOOD UREA NITROGEN 7 MG/DL (7-18); CALCIUM 9.3 MG/DL (8.5-10.1); GLUCOSE,RANDOM 148 MG/DL (74-106)
[2017-10-15 08:18] LABS: ALT (GPT) 43 U/L (12-78); AST (GOT) 32 U/L (15-37); GLOMERULAR FILTRATION RATE 62 ML/MIN (>89)
[2017-10-15 08:20] LABS: TOTAL BILIRUBIN ADULT 1.1 MG/DL (0.2-1.0); TOTAL PROTEIN 8.2 GM/DL (6.4-8.2)
[2017-10-15 08:21] LABS: ALKALINE PHOSPHATASE 70 U/L (45-117)
[2017-10-15 09:00] VITALS: BP 147/78; PULSE 62; RESP 16; O2SAT 99
[2017-10-15] MEDS ORDERED: ZOFR4TAB PO (09:49)
== END 2017-10-15 10:03 | disposition home or self-care (01) ==
LOC: PHED 07:11
DX: F10.239 Alcohol dependence with withdrawal, unspecified (principal); R19.7 Diarrhea, unspecified; R11.2 Nausea with vomiting, unspecified; F19.10 Other psychoactive substance abuse, uncomplicated; I10 Essential (primary) hypertension; Z79.899 Other long term (current) drug therapy
CPT/HCPCS: 80053; 80307; 85025; 96361; 96374; 96375; 99284; J2060; J2405; J7030